=== PATIENT | male | born 1945 | race American Indian/Alaskan Native ===

== ENCOUNTER 2021-05-18 06:35 | Observation (INO) | payer MEDICARE ==
--- NOTE | 2021-05-15 09:47 | Anesthesia Consultation ---
Anesthesia Consult and Med Hx Date of service: 05/18/21 - Airway Anesthetic Teeth Evaluation: Poor (denies loose teeth), Partials (upper) ROM Head & Neck: Inadequate (decreased extension 2/2 cervical fusion) Mental/Hyoid Distance: Adequate Mallampati Class: Class II Intubation Access Assessment: Possibly Difficult - Pulmonary Exam CTA: Yes - Cardiac Exam Cardiac Exam: RRR - Pre-Operative Health Status ASA Pre-Surgery Classification: ASA2 Proposed Anesthetic Plan: General - Pulmonary Hx Smoking: Yes (former smoker quit 2004) Hx Respiratory Symptoms: No Hx Sleep Apnea: Yes (no CPAP) - Cardiovascular System Hx Hypertension: No Hx Heart Attack/AMI: No (>4mets functional capacity) Hx Percutaneous Transluminal Coronary Angioplasty (PTCA): No Hx Cardia Arrhythmia: No - Central Nervous System CVA: No - Endocrine Hx Renal Disease: No Hx Liver Disease: No Hx Insulin Dependent Diabetes: No Hx Non-Insulin Dependent Diabetes: No Hx Thyroid Disease: No - Hematic Hx Anemia: No - Other Systems Hx Substance Use: Yes (THC qHS for sleep) Hx Obesity: No - Additional Comments Anesthesia Medical History Comments: No hx anesthetic complications.
[2021-05-15 10:42] LABS: Alanine Aminotransferase 33 units/L (7-56); Albumin 4.2 g/dL (3.9-5); BUN/Creatinine Ratio 18; Blood Urea Nitrogen 18 mg/dL (9-20); Calcium 8.9 mg/dL (8.4-10.2); Hematocrit 38.3 % (35.5-45.6); Hemoglobin 12.9 gm/dl (11.8-15.2); Hemolysis Index 3; Mean Corpuscular HGB Conc 34 % (32-34); Mean Corpuscular Volume 86 fl (84-94); Platelet Count 191 K/mm3 (140-440); Red Blood Count 4.44 M/mm3 (3.65-5.03); Red Cell Distribution Width 14.8 % (13.2-15.2)
[~2021-05-18 06:35] MED LIST: ACETAMINOPHEN 500 MG TAB PO SCH
[2021-05-18] MEDS: LACTATED RINGERS 1,000 ML IV SCH (07:00)
[2021-05-18] MEDS ORDERED: ONDANSETRON 4 MG/2 ML INJ ONE (07:24)
[2021-05-18] MEDS ORDERED: LIDOCAINE MPF (2%) 20 MG/1 ML VIAL 5 ML ONE (07:24)
[2021-05-18] MEDS ORDERED: propofoL 200 MG/20 ML VIAL IV ONE (07:25)
[2021-05-18] MEDS ORDERED: fentaNYL 100 MCG/2 ML INJ ONE (07:25)
[2021-05-18] MEDS ORDERED: ONDANSETRON 4 MG/2 ML INJ IV PRN (07:30)
[2021-05-18] MEDS ORDERED: HYDROmorphone 1 MG/1 ML INJ IV PRN ×2 (07:30)
--- NOTE | 2021-05-18 07:30 | Anesthesia Day of Surgery ---
Anesthesia Day of Surgery - Day of Surgery Patient Examined: Yes Patient H&P Reviewed: Yes Patient is NPO: Yes
[2021-05-18] MEDS ORDERED: ceFAZolin/STERILE WATER 2 GM/20 ML SYRINGE IV NR (08:00)
[2021-05-18] MEDS ORDERED: ePHEDrine SULFATE 50 MG/1 ML INJ ONE (08:42)
[2021-05-18] MEDS ORDERED: dexAMETHasone 20 MG/5 ML VIAL ONE (08:42)
[2021-05-18] MEDS ORDERED: SODIUM CHLORIDE 0.9% IRRIG SOLN 2000 ML IR ONE (09:00)
--- NOTE | 2021-05-18 09:42 | Post Operative Note ---
Date of procedure: 05/18/21 Pre-op diagnosis: lopez Post-op diagnosis: same Findings: trilobar Procedure: cysto turp Anesthesia: GETA Surgeon: BELLE AMEZQUITA Estimated blood loss: minimal Pathology: list (prostate) Specimen disposition: to lab Condition: stable Disposition: PACU
--- NOTE | 2021-05-18 09:44 | Post Anesthesia Evaluation ---
- Post Anesthesia Evaluation Patient Participated: Yes Airway Patent: Yes Stable Respiratory Function: Yes Nausea/Vomiting: No Temp > 96.8F: Yes Pain Manageable: Yes Adequeate Hydration: Yes Anesthesia Complications: No Block Receding Appropriately: Not Applicable Patient on Ventilator: No
--- NOTE | 2021-05-18 10:04 | Operative Report ---
DATE OF SURGERY: 05/18/2021 PREOPERATIVE DIAGNOSIS: Large obstructing prostate, high voiding pressures prominent ball valve middle lobe. POSTOPERATIVE DIAGNOSIS: Large obstructing prostate, high voiding pressures prominent ball valve middle lobe. PROCEDURES: Cystoscopy, transurethral resection of prostate. SURGEON: Dr. Petersen. ANESTHESIA: General. FINDINGS: This is a gentleman with a large prostate, just mostly middle lobe is causing obstruction. A 2+ trabeculation is having trouble voiding. He now presents for resection. The ball valve covers the orifices. Could not see them in the office. He now presents for TURP. All the other options were given. DESCRIPTION OF PROCEDURE: The patient was brought to the OR and placed on the operating table. Following induction of anesthesia, placed in lithotomy position, prepped and draped in usual sterile fashion. His ball valve was just covering the opening of the bladder neck. Once we got in, we could not see the orifices until we resected it. The trigone was intact. We did not disturb the orifices. Once this was opened, the most of the middle lobe came from the right lobe with the prostate a little bit on the left. This was wide open. An excellent channel was achieved. No significant bleeding. A 3-way catheter was confirmed on fluoroscopy in good position. The patient tolerated the procedure well and brought to recovery room, minimal blood loss less than 30 mL, in stable condition TID: [id number] RECEIPT: [id number] MARIANO/KG
[2021-05-18] MEDS ORDERED: ONDANSETRON 4 MG ODT TAB PO PRN (10:30)
[2021-05-18] MEDS ORDERED: ACETAMINOPHEN 325 MG TAB PO PRN (10:30)
[2021-05-18] MEDS ORDERED: oxyCODONE /ACETAMINOPHEN 5-325MG TAB PO PRN (10:30)
--- NOTE | 2021-05-18 15:22 | XRay Report ---
INTRAOPERATIVE FLUOROSCOPY: ABDOMEN INDICATION / CLINICAL INFORMATION: BPH, DIFFICULTY TO URINATED. TECHNIQUE: Intraoperative spot images were obtained during the procedure. FINDINGS: Bowel gas pattern is nonobstructed. No osseous abnormality. Fluoroscopy Time: 2 seconds. Fluoroscopy Images: 1. Signer Name: Justyn Mckeon MD Signed: 05/18/2021 3:18 PM Workstation Name: [id number]
[2021-05-18] MEDS: ceFAZolin/NS 1 GM/50 ML 1 GM/50 ML BAG IV SCH ×2 (18:00→23:53)
[2021-05-18] MEDS ORDERED: ZOLPIDEM 5 MG TAB PO PRN (21:00)
[2021-05-18] MEDS: SODIUM CHLORIDE 0.9% IRRIG SOLN 2000 ML IR SCH ×2 (21:33→23:59)
[2021-05-19] MEDS: LACTATED RINGERS 1,000 ML IV SCH
[2021-05-19] MEDS: SODIUM CHLORIDE 0.9% IRRIG SOLN 2000 ML IR SCH ×2 (02:55→06:31)
[2021-05-19] MEDS: ceFAZolin/NS 1 GM/50 ML 1 GM/50 ML BAG IV SCH (07:56)
[2021-05-19 08:28] VITALS: BP 116/57
--- NOTE | 2021-05-19 12:40 | Progress Note ---
Assessment and Plan looks great cath clear home today Subjective Date of service: 05/19/21 Objective - Constitutional Vitals: Vital Signs - 12hr 05/19/21 05/19/21 04:14 07:46 Temperature 98.4 F 97.7 F Pulse Rate 55 L 65 Respiratory 18 18 Rate Blood Pressure 125/65 116/57 O2 Sat by Pulse 100 98 Oximetry General appearance: Present: no acute distress - Respiratory Respiratory effort: normal - Cardiovascular Rhythm: regular - Gastrointestinal General gastrointestinal: Present: non-tender - Labs CBC & Chem 7: 05/15/21 00:01 05/15/21 00:01 Medications & Allergies - Medications Allergies/Adverse Reactions: Allergies No Known Allergies Allergy (Verified 05/06/21 11:17) Home Medications: Home Medications Medication Instructions Recorded Confirmed Last Taken Type Calcium Carbonate [Calcium] 600 mg PO DAILY 05/06/21 05/18/21 05/17/21 09:00 History Cetirizine HCl [ZyrTEC 10mg cap] 10 mg PO DAILY 05/06/21 05/18/21 05/17/21 20:00 History Cinnamon Bark [Cinnamon] 500 mg PO DAILY 05/06/21 05/18/21 05/17/21 09:00 History Cranberry 500 mg PO DAILY 05/06/21 05/18/21 05/17/21 09:00 History Finasteride [Proscar] 5 mg PO DAILY 05/06/21 05/18/21 05/17/21 20:00 History Garlic [Odor Free Garlic] 100 mg PO DAILY 05/06/21 05/18/21 05/17/21 09:00 History Methylcellulose [Fiber] 500 mg PO DAILY 05/06/21 05/18/21 05/17/21 09:00 History Multivit-Min/FA/Lycopen/Lutein 1 each PO DAILY 05/06/21 05/18/21 05/17/21 09:00 History [Centrum Silver Men Tablet] Omega3,5,6,7,9 No.1/[place] Oil 1 each PO DAILY 05/06/21 05/18/21 05/17/21 09:00 History [Complete [place] Softgel] Potassium 99 mg PO DAILY 05/06/21 05/18/21 05/17/21 09:00 History Pravastatin [Pravachol] 40 mg PO QHS 05/06/21 05/18/21 05/17/21 20:00 History Tamsulosin [Flomax] 0.4 mg PO QDAY 05/06/21 05/18/21 05/17/21 20:00 History Vitamin B Complex [Super B-50 1 each PO DAILY 05/06/21 05/18/21 05/17/21 09:00 History Complex] Active Medications: Generic Name Dose Route Start Last Admin Trade Name Freq PRN Reason Stop Dose Admin Acetaminophen 650 mg 05/18/21 10:30 Acetaminophen 325 Mg Tab PO Q4H PRN Pain, Mild (1-3)/Fever > 100.5 Cefazolin Sodium 1 gm in 50 mls @ 100 mls/hr 05/18/21 16:00 05/19/21 07:56 Ancef/Ns 1 Gm/50 Ml IV 05/20/21 08:29 100 mls/hr Q8H LESLIE Administration Protocol Ondansetron HCl 4 mg 05/18/21 10:30 Ondansetron 4 Mg Odt Tab PO Q8H PRN Nausea And Vomiting Oxycodone/Acetaminophen 2 tab 05/18/21 10:30 05/18/21 21:35 Oxycodone /Acetaminophen 5-325mg Tab PO 2 tab Q6H PRN Administration Pain, Moderate (4-6) Sodium Chloride 2,000 ml 05/18/21 10:00 05/19/21 06:31 Sodium Chloride 0.9% Irrig Soln 2000 Ml IR 2,000 ml DIRECT LESLIE Administration Zolpidem Tartrate 5 mg 05/18/21 21:00 Zolpidem 5 Mg Tab PO QHS PRN Sleep
--- NOTE | 2021-05-19 12:41 | Discharge Summary ---
Short Stay Discharge Plan Activity: other (no straining ) Weight Bearing Status: Full Weight Bearing Diet: low fat, low cholesterol, low salt Special Instructions: other (inc fluids ) Durable Medical Equipment Needed Upon Discharge: other (teach guerrier care ) Follow up with: DR BENEDICT [Other] - 7 Days BELLE AMEZQUITA MD [Staff Physician] - 48 Hours
== END 2021-05-19 15:05 | disposition home or self-care (01) ==
LOC: OR 06:35 → 3B 09:43
PROVIDERS: ADMIT Urology; ATTEND Urology
DX: N40.0 Benign prostatic hyperplasia without lower urinary tract symptoms (principal); Z20.822 Contact with and (suspected) exposure to COVID-19
CPT/HCPCS: 36415; 52601; 74018; 80053; 85027; 86850; 86900; 86901; 88305; 96365; 96366; A4217; G0378; J0690; J1100; J2405; J2704; J3010; J7120; Q9967; U0003